=== PATIENT | male | born 1955 | race Caucasian/White ===

== ENCOUNTER 2019-06-18 07:02 | Day surgery (SDC) | payer MEDICARE, BC ==
[2019-06-15 09:43] VITALS: BMI 30.2
[2019-06-18] MEDS ORDERED: Ketorolac Tromethamine 30 MG/ML VIAL ONE (07:27)
[2019-06-18 07:43] LABS: #Basophils 0.1 thou/uL (0.0-0.2); #Eosinphils 0.2 thou/uL (0.0-0.7); #Lymphocytes 1.1 thou/uL (1.20-3.40); #Monocytes 0.3 thou/uL (0.11-0.59); #Neutrophils 4.3 thou/uL (1.40-6.50); %Basophils 1.2 % (0.0-1.0); %Eosinophils 3.6 % (0.0-10.0); %Lymphocytes 18.3 % (21.0-51.0); %Monocytes 4.9 % (0.0-10.0); %Neutrophils 72.1 % (42.0-75.0); Hemoglobin 11.5 g/dL (14.0-18.0); Mean Corpuscular HGB CONC 33.8 g/dL (32.0-36.0); Mean Corpuscular Hemoglobin 30.6 pg (27.0-31.0); Mean Corpuscular Volume 90.7 fL (78.0-98.0); Mean Platelet Volume 6.9 fL (7.4-10.4); Platelet Count 269 thou/uL (130-400); RBC Distribution Width 13.5 % (11.5-14.5); Red Blood Cell (RBC) Count 3.74 mill/uL (4.70-6.10)
[2019-06-18 07:54] LABS: Anion Gap 13 mmol/L (10-20); BUN (Urea Nitrogen) 15 mg/dL (8.4-25.7); Calc. Creatinine Clearance 140 mL/min (70-130); Calcium 9.1 mg/dL (7.8-10.44); Carbon Dioxide 26 mmol/L (23-31); Chloride 106 mmol/L (98-107); Estimated GFR-MDRD Greater than 90; Glucose 114 mg/dL (80-115); Potassium 4.1 mmol/L (3.5-5.1); Sodium 141 mmol/L (136-145)
[2019-06-18] MEDS ORDERED: Promethazine HCl 25 MG/ML VIAL IM PRN (08:09)
[2019-06-18] MEDS ORDERED: Promethazine HCl 25 MG/ML VIAL SLOW IVP PRN (08:09)
[2019-06-18] MEDS ORDERED: Ondansetron HCl/PF 4 MG/2 ML Vial IVP PRN (08:09)
[2019-06-18] MEDS ORDERED: Bupivacaine 0.25% HCL 30 ML VIAL ONE (08:51)
[2019-06-18] MEDS ORDERED: Lidocaine 1% (PF) 30 ML VIAL ONE (08:51)
[2019-06-18] MEDS ORDERED: Lidocaine 1% w/Epinephrine 1:100K 20 ML VIAL ONE (08:51)
[2019-06-18] MEDS ORDERED: Midazolam HCl 2 mg/2 ml Vial ONE (09:27)
[2019-06-18] MEDS ORDERED: Fentanyl 100 MCG/2 ML VIAL ONE (09:27)
--- NOTE | 2019-06-18 09:47 | RAD ---
PA AND LATERAL CHEST: HISTORY: Preop. FINDINGS: Heart size is borderline with postop sternotomy change. There are atherosclerotic changes of the aor ta. The lungs are clear of any infiltrative process. There is blunting to the left costophrenic ang le, the most recent exam I have available for comparison is a 07/13/2011 study. The blunting in the left costophrenic angle was not present at that time. IMPRESSION: 1. Borderline heart size. 2. Postop sternotomy change with some blunting to the left costophrenic angle which was felt to be c hronic in nature. No acute process identified. POS: [facility]
[2019-06-18] MEDS ORDERED: PROPOFOL 200 MG/20 ML VIAL ONE (10:13)
[2019-06-18] MEDS ORDERED: Ondansetron PF 4 MG/2 ML Vial ONE (10:13)
--- NOTE | 2019-06-18 11:14 | OP ---
DATE OF PROCEDURE: 06/18/2019 PREOPERATIVE DIAGNOSIS: Metastatic prostate cancer. POSTOPERATIVE DIAGNOSIS: Metastatic prostate cancer. PROCEDURE PERFORMED: Placement of right subclavian standard-sized power compatible MediPort. ANESTHESIA: General anesthesia with laryngeal mask airway. INDICATIONS: The patient is a 64-year-old white male with metastatic prostate cancer, who presents for MediPort placement for chemotherapy. DESCRIPTION OF PROCEDURE: Informed consent was obtained. The patient was taken to the operating room where total intravenous anesthesia was obtained with the patient in supine position. Right periclavicular area was prepped with ChloraPrep and draped in sterile fashion. Local anesthetic was infiltrated and a large-gauge needle was passed under the clavicle in the subclavian vein. Guidewire was passed through the needle and fluoroscopically confirmed to enter the superior vena cava. Additional local anesthetic was infiltrated and transverse incision was created based on needle insertion site. A subcutaneous pocket was dissected inferiorly. Introducer dilator was passed over the guidewire under fluoroscopic guidance. The guidewire and dilator were removed, and the catheter was passed through the introducer. The tip of the catheter was positioned at the atriocaval junction and the catheter was trimmed to the appropriate length and secured to the locking hub of the MediPort. The port was then placed in the subcutaneous pocket where it was secured to the pectoral fascia with 2 interrupted sutures of 3-0 Prolene. The incision was then closed in layers with 3-0 and 4-0 Monocryl. Additional local anesthetic was infiltrated. The port was cannulated with a Kitchen needle and it aspirated blood freely and was flushed with heparinized saline. Dermabond was placed externally on the skin incision. There were no complications. Blood loss was negligible. The patient tolerated the procedure well and was taken to recovery room in stable condition. FINDINGS: I used a low-profile power compatible MediPort. The patient's anatomy was within normal limits and there were no problems during the procedure. Due to his body habitus, I selected a standard size port. This was placed uneventfully into the right subclavian vein. There was some continuous retrograde oozing around the catheter insertion site within the soft tissues and I therefore placed a pursestring suture of 3-0 Monocryl around the catheter entry site into the soft tissue. I made sure that the port was easily aspirated and flushed in spite of the suture. There were no complications. The patient tolerated the procedure well. Job ID: [id number]
--- NOTE | 2019-06-18 12:35 | RAD ---
SINGLE VIEW CHEST: Date: 06/18/19 COMPARISON: 06/18/19 at 0824 hours. HISTORY: MediPort placement. FINDINGS: Single view of the chest shows cardiomediastinal silhouette which is upper limits of normal in size. The patient is status post sternotomy. There is a right-sided MediPort with its tip in the superior v joe cava. No pneumothorax is seen. IMPRESSION: Status post MediPort placement without evidence of complication. POS: [facility]
--- NOTE | 2019-06-19 14:08 | EKG ---
Test Reason : PREOP Blood Pressure : / mmHG Vent. Rate : 069 BPM Atrial Rate : 069 BPM P-R Int : 168 ms QRS Dur : 098 ms QT Int : 418 ms P-R-T Axes : 039 -30 005 degrees QTc Int : 447 ms Normal sinus rhythm Left axis deviation Abnormal ECG When compared with ECG of 16-MAR-2011 11:50, Incomplete right bundle branch block is no longer Present Confirmed by FRANCK ROGERS, SBozena ([id number]) on 06/19/2019 2:07:50 PM Referred By: DONELL Confirmed By:DR. Shivam JUÁREZ MD
== END 2019-06-18 12:00 | disposition home or self-care (01) ==
LOC: SDC 07:02
PROVIDERS: ATTEND Specialist
PROC: 02HV33Z Insertion of Infusion Device into Superior Vena Cava, Percutaneous Approach (ICD-10-PCS; principal; 2019-06-18)
DX: C61 Malignant neoplasm of prostate (principal); I10 Essential (primary) hypertension; M19.90 Unspecified osteoarthritis, unspecified site; Z79.84 Long term (current) use of oral hypoglycemic drugs; Z79.899 Other long term (current) drug therapy; Z88.1 Allergy status to other antibiotic agents; Z88.8 Allergy status to other drugs, medicaments and biological substances
CPT/HCPCS: 36415; 71045; 71046; 80048; 85025; 93005; 93010; C1788; J0131; J0690; J1642; J1885; J2001; J2250; J2405; J2704; J3010; S0020

== ENCOUNTER 2019-06-22 09:55 | Inpatient (IN) | payer MEDICARE, BC ==
--- NOTE | 2019-06-22 10:27 | RAD ---
Portable chest: HISTORY: Cough COMPARISON: 06/18/2019 FINDINGS:Mild cardiomegaly. Postop sternotomy change. Mild vascular engorgement. No focal infiltrate. No interval change. Mediport catheter appears adequately positioned. IMPRESSION: No acute finding
[2019-06-22] MEDS ORDERED: Metoprolol Tartrate 5 MG/5 ML VIAL ONE (10:50)
[2019-06-22 11:13] LABS: Hemoglobin 11.3 g/dL (14.0-18.0); Mean Corpuscular Hemoglobin 30.2 pg (27.0-31.0); Mean Corpuscular Volume 91.3 fL (78.0-98.0); Mean Platelet Volume 7.8 fL (7.4-10.4); Platelet Count 213 thou/uL (130-400); RBC Distribution Width 13.8 % (11.5-14.5); Red Blood Cell (RBC) Count 3.75 mill/uL (4.70-6.10)
[2019-06-22 11:22] LABS: ALT (SGPT) 13 U/L (8-55); AST (SGOT) 9 U/L (5-34); Albumin 3.4 g/dL (3.4-4.8); Alkaline Phosphatase 86 U/L (40-110); Anion Gap 11 mmol/L (10-20); BUN (Urea Nitrogen) 26 mg/dL (8.4-25.7); Calc. Creatinine Clearance 0 mL/min (70-130); Calcium 8.4 mg/dL (7.8-10.44); Carbon Dioxide 28 mmol/L (23-31); Chloride 106 mmol/L (98-107); Estimated GFR-MDRD 86; Globulin 2.3 g/dL (2.4-3.5); Glucose 90 mg/dL (80-115); Magnesium 1.9 mg/dL (1.6-2.6); Potassium 3.7 mmol/L (3.5-5.1); Protein, Total 5.7 g/dL (5.8-8.1); Sodium 141 mmol/L (136-145)
[2019-06-22 11:27] LABS: Band 2 % (5-11); Lymphocytes 13 % (21-51); MDiff Complete? YES; Monocytes 4 % (0-10); Neutrophil 81 % (42-75); Platelet Morphology Comment Appears Adequate; Vacuoles SLIGHT
[2019-06-22] MEDS ORDERED: Dextrose 5% in Water 1,000 ML IV PRN (12:58)
[2019-06-22] MEDS ORDERED: Senokot S 8.6-50 MG TAB PO PRN (12:58)
[2019-06-22] MEDS ORDERED: Acetaminophen 325 MG TAB PO PRN (12:58)
[2019-06-22] MEDS ORDERED: HumaLOG 300 UNITS/3 ML VIAL SC PRN ×2 (12:58)
[2019-06-22] MEDS ORDERED: Bisacodyl 10 MG SUPP PR PRN (12:58)
[2019-06-22] MEDS ORDERED: Guaifenesin DM 100-10/5 ML UDCUP PO PRN (12:58)
[2019-06-22] MEDS ORDERED: Calcium Carbonate 500 MG ChewTAB PO PRN (12:58)
[2019-06-22] MEDS ORDERED: Dextrose 50% Abboject 50 ML SYRINGE SLOW IVP PRN (12:58)
[2019-06-22 13:27] VITALS: BMI 29.8
--- NOTE | 2019-06-22 13:36 | HP ---
PRIMARY CARE PHYSICIAN: Dr. Strauss. PRIMARY ONCOLOGIST: Dr. Ellsworth. REASON FOR ADMISSION: Atrial fibrillation and RVR. HISTORY OF PRESENT ILLNESS: The patient gives history of having palpitations from Tuesday evening. He had called Dr. Rosenbaum's office. He was told if this persisted to call them again. He has had regular followups with Dr. Rosenbaum and has been told that he has another condition, but not atrial fibrillation. Currently, he has no complaints of chest pain, shortness of breath, or orthopnea. His palpitations persisted yesterday and continued on until this morning. He called Dr. Rosenbaum's on-call service and was asked to go to the emergency room. He has a significant history of prostate cancer and is on chemotherapy. Last chemo was on Tuesday. He has received Taxotere along with Neulasta. He has had a MediPort placed on Tuesday by Dr. Zuniga. He normally ambulates by himself. No complaints of fever, cough, or expectoration. No complaints of urinary frequency or urgency. No diarrhea or abdominal pain. No nausea. He has been steadily gaining weight due to Lupron shots. 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 CURRENT MEDICATIONS: 1. The patient is on Lupron shots once every 3 months. 2. He is on Taxotere every 3 weeks along with Neulasta. 3. He is on thyroid (pork) 60 mg twice daily. 4. Levoxyl 137 mcg p.o. daily. 5. Pioglitazone 50 mg p.o. daily. 6. Metformin 1000 mg twice daily. 7. Cardizem CD 120 mg p.o. daily. 8. CoQ10 200 mg p.o. daily. 9. Melatonin 10 mg p.o. at bedtime. ALLERGIES: ALLERGIC TO LEVAQUIN AND LISINOPRIL. PERSONAL HISTORY: Does not abuse alcohol or drugs. No history of smoking. The patient is a rancher. Lives with his . FAMILY HISTORY: Both parents are living. Both have history of atrial fibrillation. Mother has history of colon cancer and heart disease. Father has history of coronary artery disease as well. CODE STATUS: Full. Power of workers compensation attorney is his . REVIEW OF SYSTEMS: CONSTITUTIONAL: Negative for weight loss or gain, ability to conduct usual activities. SKIN: Negative for rash, itching. EYES: Negative for double vision, pain. ENT/MOUTH: Negative for nose bleeding, neck stiffness, pain, tenderness. CARDIOVASCULAR: Negative for palpitations, dyspnea on exertion, orthopnea. RESPIRATORY: Negative for shortness of breath, wheezing, cough, hemoptysis, fever or night sweats. GASTROINTESTINAL: Negative for poor appetite, abdominal pain, heartburn, nausea , vomiting, constipation, or diarrhea. GENITOURINARY: Negative for urgency, frequency, dysuria, nocturia. MUSCULOSKELETAL: Negative for pain, swelling. NEUROLOGIC/PSYCHIATRIC: Negative for anxiety, depression. ALLERGY/IMMUNOLOGIC: Negative for skin rash, bleeding tendency. PHYSICAL EXAMINATION: GENERAL: The patient is a 64-year-old male, who is currently not in any acute distress. VITAL SIGNS: Blood pressure 114/76, pulse 104 per minute, respiratory rate 22 per minute, temperature 97.6 degrees Fahrenheit, and saturating 96% on room air. NECK: Supple. No elevated JVD. HEENT: Eyes, extraocular muscles intact. Pupils reacting to light. Oral cavity, mucous membranes are dry. No exudates or congestion. CARDIOVASCULAR SYSTEM: S1 and S2 heard, regular rhythm. RESPIRATORY SYSTEM: Air entry 1+ bilateral. No rales or rhonchi. ABDOMEN: Soft. Bowel sounds heard. No tenderness, rigidity, or guarding. EXTREMITIES: There is 1+ peripheral edema. No calf tenderness. VASCULAR SYSTEM: Peripheral pulses 1+ bilateral. No ischemic ulcerations or gangrene. CENTRAL NERVOUS SYSTEM: No gross focal deficits noted. The patient is alert, awake, oriented well. PSYCHIATRIC: The patient's mood is euthymic. No hallucinations or delusions. IMAGING STUDIES: EKG done shows atrial fibrillation with RVR at 103 beats per minute. There is poor R-wave progression with incomplete RBBB. Chest x-ray done shows no acute findings. LABORATORY DATA: BUN 26 and creatinine 0.8. Electrolytes are stable. Serum glucose 90. Liver enzymes within normal limits. Troponin I 1st set is negative. Albumin is 3.4. White count of 21, H and H 11 and 34, platelet count 213, MCV is 91 with 81% neutrophils, 2% bands, 13% lymphocytes. CLINICAL IMPRESSION AND PLAN: The patient will be under observation on telemetry for recurrent palpitation with new-onset atrial fibrillation. He is on Cardizem CD 120 mg at home. We will add Lopressor 50 mg twice daily. He will be on low- dose aspirin. Echo with 2D Doppler for left ventricular function and to rule out thrombus. We will consult Dr. Caballero who is on-call for Dr. Rosenbaum. The patient is currently asymptomatic at present. If he were to get symptomatic, he will be placed on Cardizem drip or amiodarone drip based on his hemodynamic status. We will continue his Synthroid, [place] Thyroid, Actos, and metformin as before. We will gently hydrate him with normal saline at 60 mL/hour for a total of 2 L. Two more sets of troponin will be trended. He is otherwise hemodynamically stable, and we will closely monitor him on telemetry. Job ID: [id number] [facility]
[2019-06-22] MEDS ORDERED: Prevnar 13-Val Conj/PF 0.5 ML SYRINGE IM ONE (13:45)
[2019-06-22 14:27] LABS: Troponin I 0.039 ng/mL (< 0.028)
[2019-06-22] MEDS: Sodium Chloride 0.9% 1,000 ML IV SCH (16:02)
[2019-06-22] MEDS: metFORMIN 500 MG TAB PO SCH (16:02)
[2019-06-22 17:03] LABS: Troponin I 0.034 ng/mL (< 0.028)
[2019-06-22] MEDS: Metoprolol Tartrate 50 MG TAB PO SCH (18:30)
[2019-06-22] MEDS: Famotidine 20 MG TAB PO SCH (19:23)
[2019-06-22] MEDS ORDERED: Dronedarone HCl 400 MG TAB PO SCH (21:15)
[2019-06-22] MEDS ORDERED: Apixaban 5 MG TAB PO SCH (21:15)
[2019-06-23] MEDS: Levothyroxine Sodium 125 MCG TAB PO SCH (05:46)
[2019-06-23] MEDS: Sodium Chloride 0.9% 1,000 ML IV SCH ×2 (05:46→22:11)
[2019-06-23 05:54] LABS: Band 18 % (5-11); Eosinophils 2 % (0-10); Hemoglobin 10.4 g/dL (14.0-18.0); Lymphocytes 10 % (21-51); MDiff Complete? YES; Mean Corpuscular HGB CONC 33.6 g/dL (32.0-36.0); Mean Corpuscular Hemoglobin 30.4 pg (27.0-31.0); Mean Corpuscular Volume 90.3 fL (78.0-98.0); Metamyelocyte 7 % (0-0); Myelocyte 1 % (0-0); Neutrophil 60 % (42-75); Platelet Count 175 thou/uL (130-400); Platelet Morphology Comment Appears Adequate; RBC Distribution Width 13.6 % (11.5-14.5); RBC Morphology Normal; Reactive Lymphocytes 2 % (0-10); Red Blood Cell (RBC) Count 3.43 mill/uL (4.70-6.10); White Blood Cell (WBC) Count 15.6 thou/uL (4.8-10.8)
[2019-06-23 05:58] LABS: Anion Gap 10 mmol/L (10-20); BUN (Urea Nitrogen) 20 mg/dL (8.4-25.7); Calc. Creatinine Clearance 135 mL/min (70-130); Calcium 8.1 mg/dL (7.8-10.44); Carbon Dioxide 30 mmol/L (23-31); Chloride 105 mmol/L (98-107); Estimated GFR-MDRD Greater than 90; Glucose 91 mg/dL (80-115); Potassium 3.8 mmol/L (3.5-5.1); Sodium 141 mmol/L (136-145)
[2019-06-23 06:17] LABS: Free T4 (Free Thyroxine) 1.4 ng/dL (0.70-1.48)
[2019-06-23] MEDS: Dronedarone HCl 400 MG TAB PO SCH ×2 (08:07→17:33)
[2019-06-23] MEDS: Aspirin 81 mg Enteric Coated Tablet PO SCH (08:08)
[2019-06-23] MEDS: Apixaban 5 MG TAB PO SCH ×2 (08:08→20:17)
[2019-06-23] MEDS: Thyroid 60 MG TAB PO SCH (08:08)
[2019-06-23] MEDS: Famotidine 20 MG TAB PO SCH ×2 (08:08→20:17)
[2019-06-23] MEDS: Metoprolol Tartrate 50 MG TAB PO SCH ×2 (08:08→20:18)
[2019-06-23] MEDS ORDERED: Enoxaparin Sodium 40 MG/0.4 ML SYRINGE SC SCH (09:00)
[2019-06-23] MEDS: metFORMIN 500 MG TAB PO SCH ×2 (11:29→17:33)
[2019-06-23] MEDS: Pioglitazone HCl 15 MG TAB PO SCH (11:29)
[2019-06-23 11:51] LABS: Bacteria/HPF None Seen HPF (None Seen); Bilirubin Negative (Negative); Blood, Urine Negative (Negative); Clarity Clear (Clear); Glucose, Urine (Dipstick) Normal (Negative); Leukocyte Negative Leu/uL (Negative); Nitrite Negative (Negative); Protein, Urine (Dipstick) Negative (Neg-Trace); RBC/HPF 0-3 HPF (0-3); Squamous Epithelial None Seen HPF (0-3); Urobilinogen Normal mg/dL (Less than 2); WBC/HPF 0-3 HPF (0-3)
[2019-06-23 11:54] LABS: Urine Culture Reflex No No
--- NOTE | 2019-06-23 12:07 | PDOC.HOSPP ---
- Subjective Encounter Date: 06/23/19 Encounter Time: 10:05 Subjective: 64 y/o male with prostate ca on chemo, DM, hypothyroidism admitted with palpitation and found to have atrial fiv with RVR. Denied fever, nausea or vomting. Rate control is better but still suboptimal as rate goes up with minimal exertion. - Objective Vital Signs & Weight: Vital Signs (12 hours) Temp Pulse Resp BP BP Pulse Ox 06/23/19 11:52 97 F L 94 14 112/69 95 06/23/19 08:08 118 H 126/83 06/23/19 07:20 98.1 F 118 H 16 126/83 95 06/23/19 03:26 97.8 F 96 16 106/62 96 Weight Weight 232 lb 8 oz I&O: 06/22/19 06/23/19 06/24/19 06:59 06:59 06:59 Intake Total 1540 Output Total 1400 Balance 140 Result Diagrams: 06/23/19 05:02 06/23/19 05:02 Additional Labs: Accuchecks 06/23/19 06/22/19 06/22/19 10:45 21:28 16:47 POC Glucose 102 116 H 111 H Hospitalist ROS - Medication Medications: Active Medications Generic Name Dose Route Start Last Admin Trade Name Freq PRN Reason Stop Dose Admin Apixaban 5 mg 06/23/19 09:00 06/23/19 08:08 Eliquis PO 5 mg BID RADHA Administration Aspirin 81 mg 06/23/19 09:00 06/23/19 08:08 Ecotrin PO 81 mg DAILY RADHA Administration Diltiazem HCl 120 mg 06/23/19 09:00 06/23/19 08:08 Cardizem Cd PO 120 mg DAILY RADHA Administration Dronedarone 400 mg 06/23/19 08:00 06/23/19 08:07 Multaq PO 400 mg BID-WM RADHA Administration Famotidine 20 mg 06/22/19 21:00 06/23/19 08:08 Pepcid PO 20 mg BID RADHA Administration Sodium Chloride 1,000 mls @ 60 mls/hr 06/22/19 13:00 06/23/19 05:46 Normal Saline 0.9% IV 1,000 mls .[id number] RADHA Administration Levothyroxine Sodium 125 mcg 06/23/19 06:00 06/23/19 05:46 Synthroid PO 125 mcg 0600 RADHA Administration Metformin HCl 1,000 mg 06/22/19 17:00 06/23/19 11:29 Glucophage PO 1,000 mg BID-WM RADHA Administration Metoprolol Tartrate 50 mg 06/22/19 21:00 06/23/19 08:08 Lopressor PO 50 mg BID RADHA Administration Pioglitazone HCl 15 mg 06/23/19 09:00 06/23/19 11:29 Actos PO 15 mg DAILY RADHA Administration Sodium Chloride 10 ml 06/22/19 21:00 06/23/19 08:09 Flush - Normal Saline IVF Not Given Q12HR RADHA Thyroid 60 mg 06/23/19 09:00 06/23/19 08:08 [place] Thyroid PO 60 mg DAILY RADHA Administration - Exam General Appearance: awake alert ENT: normocephalic atraumatic, moist mucosa Neck: supple, symmetric, no JVD Heart: irregular Respiratory: no wheezes, no rales, no ronchi, normal chest expansion Gastrointestinal: soft, non-tender, non-distended, normal bowel sounds Extremities: no cyanosis, no edema Neurological: cranial nerve grossly intact, no focal deficits Psychiatric: normal affect, A&O x 3 Hosp A/P (1) Paroxysmal atrial fibrillation with RVR Code(s): I48.0 - PAROXYSMAL ATRIAL FIBRILLATION Status: Acute (2) Palpitations Code(s): R00.2 - PALPITATIONS Status: Acute (3) Prostate cancer Code(s): C61 - MALIGNANT NEOPLASM OF PROSTATE Status: Acute (4) Hypothyroidism Code(s): E03.9 - HYPOTHYROIDISM, UNSPECIFIED Status: Acute (5) Diabetes mellitus Code(s): E11.9 - TYPE 2 DIABETES MELLITUS WITHOUT COMPLICATIONS Status: Acute (6) Mild mitral regurgitation Code(s): I34.0 - NONRHEUMATIC MITRAL (VALVE) INSUFFICIENCY Status: Acute (7) Leucocytosis Code(s): D72.829 - ELEVATED WHITE BLOOD CELL COUNT, UNSPECIFIED Status: Acute (8) Elevated troponin Code(s): R79.89 - OTHER SPECIFIED ABNORMAL FINDINGS OF BLOOD CHEMISTRY Status : Acute (9) Demand ischemia of myocardium Code(s): I24.8 - OTHER FORMS OF ACUTE ISCHEMIC HEART DISEASE Status: Acute - Plan Continue metoprol, multaq and cardizem. Dose adjustment as per cardiology. Get UA with microscopy to rule out UTI Awaiting cardiology re evaluation. Continue telemetry
--- NOTE | 2019-06-23 17:52 | PDOC.CPN ---
- Subjective Date: 06/23/19 Time: 17:50 Interval history: He is doing well. Afib currently rate controlled. - Review of Systems General: denies: fever/chills, weight/appetite/sleep changes, night sweats, fatigue Respiratory: reports: shortness of breath. denies: cough, congestion, exercise intolerance Cardiovascular: reports: palpitation. denies: chest pain, edema, paroxysmal nocturnal dyspnea, orthopnea Gastrointestinal: denies: nausea, vomiting, diarrhea, constipation, abd pain, GI bleeding Musculoskeletal: denies: pain, tenderness, stiffness, swelling, arthritis/ arthralgias Neurological: denies: numbness, syncope, seizure, weakness - Objective Allergies/Adverse Reactions: Allergies Allergy/AdvReac Type Severity Reaction Status Date / Time levofloxacin [From Levaquin] Allergy Rash Verified 06/22/19 13:22 lisinopril Allergy Anaphylaxis Verified 06/22/19 13:22 Visit Medications: Current Medications Acetaminophen (Tylenol) 650 mg PO Q4H PRN PRN Reason: Headache/Fever/Mild Pain (1-3) Apixaban (Eliquis) 5 mg PO BID [facility] Last Admin: 06/23/19 08:08 Dose: 5 mg Aspirin (Ecotrin) 81 mg PO DAILY [facility] Last Admin: 06/23/19 08:08 Dose: 81 mg Bisacodyl (Dulcolax) 10 mg [place] DAILYPRN PRN PRN Reason: Constipation Calcium Carbonate (Tums) 1,000 mg PO Q4H PRN PRN Reason: Heartburn or Indigestion Dextrose/Water (Dextrose 50%) 25 gm SLOW IVP PRN PRN PRN Reason: Hypoglycemia Diltiazem HCl (Cardizem Cd) 120 mg PO DAILY [facility] Last Admin: 06/23/19 08:08 Dose: 120 mg Dronedarone (Multaq) 400 mg PO BID-[facility] Last Admin: 06/23/19 17:33 Dose: 400 mg Famotidine (Pepcid) 20 mg PO BID [facility] Last Admin: 06/23/19 08:08 Dose: 20 mg Glucagon (Glucagon) 1 mg IM PRN PRN PRN Reason: Hypoglycemia Guaifenesin/Dextromethorphan (Robitussin Dm) 15 ml PO Q4H PRN PRN Reason: Cough Dextrose/Water (D5w) 1,000 mls @ 0 mls/hr IV .Q0M PRN PRN Reason: Hypoglycemia Sodium Chloride (Normal Saline 0.9%) 1,000 mls @ 60 mls/hr IV .[id number] [facility] Last Admin: 06/23/19 05:46 Dose: 1,000 mls Insulin Human Lispro (Humalog) 0 units [place] .MODERATE SLIDING SC PRN PRN Reason: Moderate Correctional Scale Insulin Human Lispro (Humalog) 0 units [place] .BEDTIME SLIDING SC PRN PRN Reason: Bedtime Correctional Scale Levothyroxine Sodium (Synthroid) 125 mcg PO 0600 [facility] Last Admin: 06/23/19 05:46 Dose: 125 mcg Metformin HCl (Glucophage) 1,000 mg PO BID-[facility] Last Admin: 06/23/19 17:33 Dose: 1,000 mg Metoprolol Tartrate (Lopressor) 50 mg PO BID [facility] Last Admin: 06/23/19 08:08 Dose: 50 mg Pioglitazone HCl (Actos) 15 mg PO DAILY [facility] Last Admin: 06/23/19 11:29 Dose: 15 mg Senna/Docusate Sodium (Senokot S) 2 tab PO BIDPRN PRN PRN Reason: Constipation Sodium Chloride (Flush - Normal Saline) 10 ml IVF Q12HR [facility] Last Admin: 06/23/19 08:09 Dose: Not Given Sodium Chloride (Flush - Normal Saline) 10 ml IVF PRN PRN PRN Reason: Saline Flush Thyroid ([place] Thyroid) 60 mg PO DAILY [facility] Last Admin: 06/23/19 08:08 Dose: 60 mg Vital Signs & Weight: Vital Signs Temp Pulse Resp BP BP Pulse Ox 06/23/19 15:37 97 F L 96 20 121/62 97 06/23/19 11:52 97 F L 94 14 112/69 95 06/23/19 08:08 118 H 126/83 06/23/19 07:20 98.1 F 118 H 16 126/83 95 Weight 232 lb 8 oz - Physical Exam General: alert & oriented x3 HEENT: mucus membranes moist Neck: supple neck, midline trachea Cardiac: irregularly regular Lungs: clear to auscultation Neuro: grossly intact Abdomen: active bowel sounds Extremities: no edema Skin: clear Musculoskeletal: no pain - Labs Result Diagrams: 06/23/19 05:02 06/23/19 05:02 Troponin/CKMB Troponin I 0.034 ng/mL (< 0.028) H 06/22/19 16:34 - Telemetry Supraventricular conduction: atrial fibrillation - Assessment/Plan Assessment/Plan: 1. Atrial fibrillation, new onset 2. Hx of prostate CA with mets to lungs and spine 3. Type 2 DM 4. Hypothyroidism. PLAN: - Multaq and eliquis - [place] Cardioversion Tuesday if he remains in afib.
[2019-06-24] MEDS: Levothyroxine Sodium 125 MCG TAB PO SCH (05:07)
[2019-06-24] MEDS: metFORMIN 500 MG TAB PO SCH (08:58)
[2019-06-24] MEDS: Pioglitazone HCl 15 MG TAB PO SCH (08:58)
[2019-06-24] MEDS: Thyroid 60 MG TAB PO SCH (08:58)
[2019-06-24] MEDS: Aspirin 81 mg Enteric Coated Tablet PO SCH (08:58)
[2019-06-24] MEDS: Metoprolol Tartrate 50 MG TAB PO SCH (08:58)
[2019-06-24] MEDS: Famotidine 20 MG TAB PO SCH (08:58)
[2019-06-24] MEDS: Apixaban 5 MG TAB PO SCH (08:58)
[2019-06-24] MEDS: Dronedarone HCl 400 MG TAB PO SCH (08:58)
--- NOTE | 2019-06-24 12:55 | PDOC.CPN ---
- Subjective Date: 06/24/19 Time: 12:52 Interval history: He remains in afib but rate controlled. Very symptomatic, he gets SOB with any exertion while in afib, even going to the bathroom. - Review of Systems General: denies: fever/chills, weight/appetite/sleep changes, night sweats, fatigue Respiratory: reports: shortness of breath. denies: cough, congestion, exercise intolerance Cardiovascular: denies: chest pain, palpitation, edema, paroxysmal nocturnal dyspnea, orthopnea Gastrointestinal: denies: nausea, vomiting, diarrhea, constipation, abd pain, GI bleeding Musculoskeletal: denies: pain, tenderness, stiffness, swelling, arthritis/ arthralgias Neurological: denies: numbness, syncope, seizure, weakness - Objective Allergies/Adverse Reactions: Allergies Allergy/AdvReac Type Severity Reaction Status Date / Time levofloxacin [From Levaquin] Allergy Rash Verified 06/22/19 13:22 lisinopril Allergy Anaphylaxis Verified 06/22/19 13:22 Visit Medications: Current Medications Acetaminophen (Tylenol) 650 mg PO Q4H PRN PRN Reason: Headache/Fever/Mild Pain (1-3) Last Admin: 06/24/19 09:03 Dose: 650 mg Apixaban (Eliquis) 5 mg PO BID [facility] Last Admin: 06/24/19 08:58 Dose: 5 mg Aspirin (Ecotrin) 81 mg PO DAILY [facility] Last Admin: 06/24/19 08:58 Dose: 81 mg Bisacodyl (Dulcolax) 10 mg [place] DAILYPRN PRN PRN Reason: Constipation Calcium Carbonate (Tums) 1,000 mg PO Q4H PRN PRN Reason: Heartburn or Indigestion Dextrose/Water (Dextrose 50%) 25 gm SLOW IVP PRN PRN PRN Reason: Hypoglycemia Diltiazem HCl (Cardizem Cd) 120 mg PO DAILY [facility] Last Admin: 06/24/19 08:58 Dose: 120 mg Dronedarone (Multaq) 400 mg PO BID-[facility] Last Admin: 06/24/19 08:58 Dose: 400 mg Famotidine (Pepcid) 20 mg PO BID [facility] Last Admin: 06/24/19 08:58 Dose: 20 mg Glucagon (Glucagon) 1 mg IM PRN PRN PRN Reason: Hypoglycemia Guaifenesin/Dextromethorphan (Robitussin Dm) 15 ml PO Q4H PRN PRN Reason: Cough Dextrose/Water (D5w) 1,000 mls @ 0 mls/hr IV .Q0M PRN PRN Reason: Hypoglycemia Sodium Chloride (Normal Saline 0.9%) 1,000 mls @ 60 mls/hr IV .[id number] [facility] Last Admin: 06/23/19 22:11 Dose: Not Given Insulin Human Lispro (Humalog) 0 units [place] .MODERATE SLIDING SC PRN PRN Reason: Moderate Correctional Scale Insulin Human Lispro (Humalog) 0 units SC .BEDTIME SLIDING SC PRN PRN Reason: Bedtime Correctional Scale Levothyroxine Sodium (Synthroid) 125 mcg PO 0600 [facility] Last Admin: 06/24/19 05:07 Dose: 125 mcg Metformin HCl (Glucophage) 1,000 mg PO BID-[facility] Last Admin: 06/24/19 08:58 Dose: 1,000 mg Metoprolol Tartrate (Lopressor) 50 mg PO BID [facility] Last Admin: 06/24/19 08:58 Dose: 50 mg Pioglitazone HCl (Actos) 15 mg PO DAILY [facility] Last Admin: 06/24/19 08:58 Dose: 15 mg Senna/Docusate Sodium (Senokot S) 2 tab PO BIDPRN PRN PRN Reason: Constipation Sodium Chloride (Flush - Normal Saline) 10 ml IVF Q12HR [facility] Last Admin: 06/24/19 08:59 Dose: 10 ml Sodium Chloride (Flush - Normal Saline) 10 ml IVF PRN PRN PRN Reason: Saline Flush Thyroid ([place] Thyroid) 60 mg PO DAILY [facility] Last Admin: 06/24/19 08:58 Dose: 60 mg Vital Signs & Weight: Vital Signs Temp Pulse Resp BP BP Pulse Ox 06/24/19 11:06 98 20 113/78 96 06/24/19 08:58 111 H 124/89 06/24/19 07:29 97.6 F 111 H 18 124/89 96 06/24/19 03:20 97.9 F 91 16 129/72 97 Weight 232 lb 8 oz - Physical Exam General: alert & oriented x3 HEENT: mucus membranes moist, normocephaly Neck: supple neck, midline trachea Cardiac: no murmur, irregularly regular Lungs: clear to auscultation Neuro: grossly intact Abdomen: active bowel sounds, soft, non-tender Extremities: no edema Skin: clear Musculoskeletal: no pain - Labs Result Diagrams: 06/23/19 05:02 06/23/19 05:02 Troponin/CKMB Troponin I 0.034 ng/mL (< 0.028) H 06/22/19 16:34 - Telemetry Supraventricular conduction: atrial fibrillation - Assessment/Plan Assessment/Plan: 1. Atrial fibrillation, new onset 2. Hx of prostate CA with mets to lungs and spine 3. Type 2 DM 4. Hypothyroidism. PLAN: - Multaq and eliquis - [place] Cardioversion tomorrow as he is symptomatic with only rate control. - We spoke about risks and benefits odf [place] and Cardioversion, risks include but not limited to injury to teeth, injury to esophagus needing emergency surgery, failure of shock or need for more shocks, stroke. He understands and verbalizes understanding of this. He agrees to proceed.
--- NOTE | 2019-06-24 13:24 | PDOC.HOSPP ---
- Subjective Encounter Date: 06/24/19 Encounter Time: 09:23 Subjective: 64 y/o male with prostate ca on chemo, DM, hypothyroidism admitted with palpitation and found to have atrial fiv with RVR. Denied fever, nausea or vomting. Rate control is better but patient still get SOB with minimal exertion. - Objective Vital Signs & Weight: Vital Signs (12 hours) Temp Pulse Resp BP BP Pulse Ox 06/24/19 11:06 98 20 113/78 96 06/24/19 08:58 111 H 124/89 06/24/19 07:29 97.6 F 111 H 18 124/89 96 06/24/19 03:20 97.9 F 91 16 129/72 97 Weight Weight 232 lb 8 oz I&O: 06/23/19 06/24/19 06/25/19 06:59 06:59 06:59 Intake Total 1540 1980 Output Total 1400 2000 Balance 140 -20 Result Diagrams: 06/23/19 05:02 06/23/19 05:02 Additional Labs: Accuchecks 06/24/19 06/24/19 06/23/19 10:42 05:10 20:34 POC Glucose 129 H 89 119 H 06/23/19 16:38 POC Glucose 195 H Hospitalist ROS - Medication Medications: Active Medications Generic Name Dose Route Start Last Admin Trade Name Freq PRN Reason Stop Dose Admin Acetaminophen 650 mg 06/22/19 12:58 06/24/19 09:03 Tylenol PO 650 mg Q4H PRN Administration Headache/Fever/Mild Pain (1-3) Apixaban 5 mg 06/23/19 09:00 06/24/19 08:58 Eliquis PO 5 mg BID RADHA Administration Aspirin 81 mg 06/23/19 09:00 06/24/19 08:58 Ecotrin PO 81 mg DAILY RADHA Administration Diltiazem HCl 120 mg 06/23/19 09:00 06/24/19 08:58 Cardizem Cd PO 120 mg DAILY RADHA Administration Dronedarone 400 mg 06/23/19 08:00 06/24/19 08:58 Multaq PO 400 mg BID-WM RADHA Administration Famotidine 20 mg 06/22/19 21:00 06/24/19 08:58 Pepcid PO 20 mg BID RADHA Administration Sodium Chloride 1,000 mls @ 60 mls/hr 06/22/19 13:00 06/23/19 22:11 Normal Saline 0.9% IV Not Given .[id number] RADHA Levothyroxine Sodium 125 mcg 06/23/19 06:00 06/24/19 05:07 Synthroid PO 125 mcg 0600 RADHA Administration Metformin HCl 1,000 mg 06/22/19 17:00 06/24/19 08:58 Glucophage PO 1,000 mg BID-WM RADHA Administration Metoprolol Tartrate 50 mg 06/22/19 21:00 06/24/19 08:58 Lopressor PO 50 mg BID RADHA Administration Pioglitazone HCl 15 mg 06/23/19 09:00 06/24/19 08:58 Actos PO 15 mg DAILY RADHA Administration Sodium Chloride 10 ml 06/22/19 21:00 06/24/19 08:59 Flush - Normal Saline IVF 10 ml Q12HR RADHA Administration Thyroid 60 mg 06/23/19 09:00 06/24/19 08:58 [place] Thyroid PO 60 mg DAILY RADHA Administration - Exam General Appearance: awake alert Eye: anicteric sclera ENT: normocephalic atraumatic, moist mucosa Neck: supple, symmetric, no JVD Heart: irregular Respiratory: no wheezes, no rales, no ronchi, normal chest expansion Gastrointestinal: soft, non-tender, non-distended, normal bowel sounds Extremities: no cyanosis, no edema Neurological: cranial nerve grossly intact, no focal deficits Psychiatric: normal affect, A&O x 3 Hosp A/P (1) Paroxysmal atrial fibrillation with RVR Code(s): I48.0 - PAROXYSMAL ATRIAL FIBRILLATION Status: Acute (2) Palpitations Code(s): R00.2 - PALPITATIONS Status: Acute (3) Prostate cancer Code(s): C61 - MALIGNANT NEOPLASM OF PROSTATE Status: Acute (4) Hypothyroidism Code(s): E03.9 - HYPOTHYROIDISM, UNSPECIFIED Status: Acute (5) Diabetes mellitus Code(s): E11.9 - TYPE 2 DIABETES MELLITUS WITHOUT COMPLICATIONS Status: Acute (6) Mild mitral regurgitation Code(s): I34.0 - NONRHEUMATIC MITRAL (VALVE) INSUFFICIENCY Status: Acute (7) Leucocytosis Code(s): D72.829 - ELEVATED WHITE BLOOD CELL COUNT, UNSPECIFIED Status: Acute (8) Elevated troponin Code(s): R79.89 - OTHER SPECIFIED ABNORMAL FINDINGS OF BLOOD CHEMISTRY Status : Acute (9) Demand ischemia of myocardium Code(s): I24.8 - OTHER FORMS OF ACUTE ISCHEMIC HEART DISEASE Status: Acute (10) Exertional dyspnea Code(s): R06.09 - OTHER FORMS OF DYSPNEA Status: Acute - Plan For [place] cardioversion tomorrow if still in atrial fib given SOB with minimal exertion. Continue metoprol, multaq and cardizem as per cardiology Continue telemetry Continue other treatment. Get Repeat CBC and CMP in the am.
[2019-06-24 15:11] VITALS: BP 112/62; TEMP 98.4
--- NOTE | 2019-06-25 08:12 | CON ---
DATE OF CONSULTATION: HISTORY: Paulino Rivas is a 64-year-old white male, patient of Dr. Rosenbaum. He states that at one time in the past he had atrial fibrillation in 2014 after he underwent thymectomy. He has since had episodes of supraventricular tachycardia and has been on low-dose Cardizem to help suppress this. He had a chemotherapy port placed via the right subclavian vein on June 18. On June 21, he began to notice that his heart was racing and beating very irregularly. He denied any chest discomfort. He might have some shortness of breath. He would get up and walk. He states it seemed to go back to normal, but then over the last day or two has recurred and he ultimately came to the emergency room. He was found to be in atrial fibrillation with fast ventricular response , but overall his rate is not significantly elevated at this time. Again he denies any chest discomfort. Only minimal exertional dyspnea. PAST MEDICAL HISTORY: Prostate cancer recurrence with mets to the lung status post resection, mets to the spine, diabetes, hypothyroidism, prostatectomy, cataract surgery, TURP, vasectomy, thymoma resection in 2014. MEDICATIONS: 1. Diltiazem 120 daily. 2. Levothyroxine 137 mcg daily. 3. Melatonin 10 mg daily. 4. Metformin 1000 b.i.d. 5. Actos 15 once a day. 6. [place] Thyroid 60 mg b.i.d. ALLERGIES: HE IS ALLERGIC TO LEVAQUIN AND LISINOPRIL. SOCIAL HISTORY: He does not smoke or drink. REVIEW OF SYSTEMS: 10-point review of systems is otherwise unremarkable. PHYSICAL EXAMINATION: VITAL SIGNS: 114/69, pulse 103. HEENT: PERRL. NECK: Supple. CHEST: Clear. CARDIAC: S1 and S2 normal without any S3, S4, or murmurs. ABDOMEN: Normal bowel sounds without tenderness or organomegaly. EXTREMITIES: Revealed no clubbing, cyanosis, or edema. NEUROLOGIC: Grossly intact. SKIN: Warm and dry. LABORATORY DATA: Chest x-ray was reviewed and the tip of the chemotherapy port does not appear to be in the right atrium. Hemoglobin 11.3, hematocrit 34.2, white count 21,000, platelets 213,000. Sodium 140, potassium 4.5, chloride 107, carbon dioxide 24, BUN 13, creatinine 0.77. IMPRESSION: 1. New-onset atrial fibrillation. 2. 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 3. History of supraventricular tachycardia. 4. Metastatic prostate cancer. 5. Diabetes mellitus. 6. Hypothyroidism. PLAN: The patient will be started on Eliquis 5 mg b.i.d. for anticoagulation and also Multaq 400 mg b.i.d. Echocardiogram has been ordered. Consideration may be given to cardioversion in 2 to 3 days if he does not convert. Also, TSH, free T3, and free T4 will be obtained since it appears he is on somewhat of a high dose of thyroid replacement. Job ID: [id number] [facility]
--- NOTE | 2019-06-25 15:17 | DIS ---
DATE OF ADMISSION: 06/24/2019 DATE OF DISCHARGE: 06/24/2019 PRIMARY CARE PHYSICIAN: Max Strauss MD DISCHARGE DIAGNOSES: 1. Paroxysmal atrial fibrillation with rapid ventricular response. 2. Demand ischemia of the myocardium. 3. Elevated troponin. 4. Palpitations. 5. Diabetes mellitus. 6. Mild mitral regurgitation. 7. Leukocytosis. 8. Prostate cancer with metastasis. 9. Hypothyroidism. 10. Exertional dyspnea. 11. Acute diastolic heart failure due to atrial fibrillation, present on admission. CONSULTS: Cardiology. HOSPITAL COURSE: A 64-year-old male with known history of prostate cancer with metastasis on chemotherapy, type 2 diabetes, hypothyroidism, and others as well as prior history of paroxysmal atrial fibrillation, admitted with palpitation. The patient was found to have atrial fibrillation with rapid ventricular response, hence was started on Cardizem and metoprolol. Cardiology consult was obtained and the patient subsequently was started on Multaq for chemical cardioversion as the patient was noted to have shortness of breath with minimal exertion while in atrial fibrillation. The patient also was started on anticoagulation with Eliquis. Due to persistent atrial fibrillation as well as dyspnea with minimal exertion, consistent with acute diastolic dysfunction, [place] cardioversion was planned for June 25 to allow for at least 48 hours of anticoagulation. The patient, however, spontaneously converted to sinus rhythm with improvement of symptoms. The patient was observed and he remained in sinus rhythm with resolution of symptoms and was subsequently discharged home. PHYSICAL EXAMINATION: VITAL SIGNS: Temperature 98.4, pulse 74, respiratory rate 16, SpO2 of 97 on room air, and blood pressure is 112/62. GENERAL: Male patient in no obvious distress. Afebrile. Anicteric. Acyanotic. HEENT: Normocephalic, atraumatic. Oral mucosa is moist. NECK: Supple and nontender with good range of motion. No JVD appreciated. CARDIOVASCULAR: Regular rhythm and rate with soft systolic murmur. RESPIRATORY: Fair air entry bilaterally with no crackle or rhonchi or use of accessory muscles. GI: Full, soft, nontender, nondistended with normal bowel sounds. EXTREMITIES: Grossly normal looking atraumatic with no edema or erythema. ACTIVE DIRECTORY SPECIALIST: Conscious, alert, oriented x3 with appropriate mental status. Cranial nerves 2 through 12 are grossly intact. The patient is ambulant. DISCHARGE CONDITION: Improved. DISCHARGE DISPOSITION: Home. DISCHARGE FOLLOWUP: The patient is to follow up with photographer motion picture on June 25 for further treatment. The patient also is to follow up with regular oncologist for continuation of cancer treatment. DISCHARGE MEDICATIONS: 1. Diltiazem 120 mg ER p.o. daily. 2. Levothyroxine 137 mcg p.o. daily. 3. Melatonin 10 mg p.o. daily at bedtime. 4. Metformin 1000 mg p.o. b.i.d. 5. Actos 15 mg p.o. daily. 6. Thyroid ([place]) 60 mg p.o. b.i.d. 7. CoQ10 200 mg p.o. daily. 8. Eliquis 5 mg p.o. b.i.d. 9. Aspirin 81 mg p.o. daily. 10. Multaq 400 mg p.o. b.i.d. 11. Metoprolol tartrate 50 mg p.o. b.i.d. This discharge took more than 35 minutes. Job ID: [id number]
--- NOTE | 2019-06-26 06:49 | PQF ---
[employer] Erp Architect Crystal Reports Winform LUIS De La Torre ANDREAS MCNEAL [id number] [id number] CLINICAL DOCUMENTATION CLARIFICATION FORM: POST DISCHARGE Addendum to original discharge summary date: ____ Late entry note date: __ DATE: 06/26/2019 ATTN: ANDREAS MCNEAL Please exercise your independent, professional judgment in responding to the clarification form. Clinical indicators are provided on the bottom of this form for your review Please check appropriate box(s): [ ] AFIB is a complication of current/recent surgery [ ] AFIB is a not complication of current/recent surgery [ x ] Other diagnosis Paroxysmal atrial fibrillation with RVR [ ] Unable to determine In addition, please specify: Present on Admission (POA): [ x ] Yes [ ] No [ ] Unable to determine CLINICAL INDICATORS - SIGNS / SYMPTOMS / LAB He had chemotherapy port placed via RT subclavian vein on June 18 - Documented in Consultation report on 06/24 by Federico Álvarez on June 21 he began to notice that his heart was racing and beating very irregularly - Documented in Consultation report on 06/24 by Federico Álvarez Demand ischemia of Myocardium - Documented in hospital PNs on 06/24 by ANDREAS MCNEAL RISK FACTORS Metastatic Prostate cancer - Documented in Consultation report on 06/24 by Federico Álvarez DM TREATMENT: patient will started on Eliquis 5 mg for anticoagulation and also Multaq 400 mg - Documented in Consultation report on 06/24 by Federico Álvarez Echocardiogram He is on Cardizem CD 120 mg at home - Documented in H&p on 06/25 by Sherice Oneil MD (This form is maintained as a part of the permanent medical record) 2014 [facility], [employer]. All Rights Reserved [email or web address] [not provided] MTDD
--- NOTE | 2019-06-26 21:40 | PQF ---
SAP Topography Technician Crystal Reports Winform LUIS De La Torre ANDREAS MCNEAL [id number] [facility]232 [id number] CLINICAL DOCUMENTATION CLARIFICATION FORM: POST DISCHARGE Addendum to original discharge summary date: ____ Late entry note date: __ DATE: 06/26/2019 ATTN: ANDREAS MCNEAL Please exercise your independent, professional judgment in responding to the clarification form. Clinical indicators are provided on the bottom of this form for your review Please check appropriate box(s): AMI TYPE: [ ] Acute Coronary Syndrome (ACS) without Acute HI meaning Unstable Angina [ ] NSTEMI (HI type I) [ ] NSTEMI due to Demand Ischemia (AMI Type II) [ ] Demand Ischemia without HI [ ] STEMI (please also specify site and arterysee below) If STEMI, SITE:[ ] Anterior [ ] Apical [ ] Lateral [ ] Inferior [ ] Posterior [ ] Q Wave [ ] Septal [ ] Unable to Determine SPECIFIC ARTERY (Based on site) [ ] Left Main Coronary[ ] Diagonal [ ] Left Anterior Descending[ ] Oblique Marginal [ ] Right Coronary Artery[ ] Unable to Determine [ ] Left Circumflex ONSET OF INFARCTION: [ ] Onset Less than 4 weeks of admission [ ] Onset Greater than 4 weeks of admission [ ] Unable to determine DUE TO (if applicable): [ ] Stent occlusion [ ] In-Stent stenosis [ ] Occlusion of coronary bypass graft [ ] Complication of PCI [ ] Underlying CAD [ ] Other [ x ] Other diagnosis Demand ischemia of the myocardium [ ] Unable to determine In addition, please specify: Present on Admission (POA): [ x ] Yes [ ] No [ ] Unable to determine CLINICAL INDICATORS - SIGNS / SYMPTOMS / LABS Troponin 0.039 on 06/22 - Documented in Laboratory result Demand ischemia of myocardium - Documented in Hospital PNs on 06/23 by ANDREAS MCNEAL Mild mitral regurgitation - Documented in Hospital PNs on 06/23 by ANDREAS MCNEAL RISK FACTORS new onset of Afib - Documented in H&p on 06/25 by Sherice Oneil MD Metastatic Prostate cancer - Documented in Consultation report on 06/24 by Federico Álvarez DM TREATMENT: Aspirin 81 mg daily - Documented in medication patient will started on Eliquis 5 mg for anticoagulation and also Multaq 400 mg - Documented in Consultation report on 06/24 by Federico Álvarez Echocardiogram He is on Cardizem CD 120 mg at home - Documented in H&p on 06/25 by Sherice Oneil MD (This form is maintained as a part of the permanent medical record) 2014 [employer]. All Rights Reserved [email or web address] [not provided] MTDD
== END 2019-06-24 16:12 | disposition home or self-care (01) | DRG 309 ==
LOC: ERS 09:55 → 2SW 12:57 → OBSVTOIN 06-24 13:20
PROVIDERS: ADMIT Internal Medicine; ATTEND Internal Medicine
DX: I48.0 Paroxysmal atrial fibrillation (principal); I24.8 Other forms of acute ischemic heart disease; C78.7 Secondary malignant neoplasm of liver and intrahepatic bile duct; C79.51 Secondary malignant neoplasm of bone; E11.9 Type 2 diabetes mellitus without complications; E03.9 Hypothyroidism, unspecified; C61 Malignant neoplasm of prostate; I34.0 Nonrheumatic mitral (valve) insufficiency; D72.829 Elevated white blood cell count, unspecified; Z98.49 Cataract extraction status, unspecified eye; Z79.84 Long term (current) use of oral hypoglycemic drugs; Z88.8 Allergy status to other drugs, medicaments and biological substances
CPT/HCPCS: 36415; 36416; 71045; 80048; 80053; 81001; 83735; 84439; 84443; 84481; 84484; 85025; 93005; 93010; 93306; 96374

== ENCOUNTER 2020-04-20 17:58 | Emergency (ER) | payer MEDICARE, BC ==
[2020-04-20 20:18] LABS: #Eosinphils 0.1 thou/uL (0.0-0.7); #Lymphocytes 1.2 thou/uL (1.20-3.40); #Monocytes 0.7 thou/uL (0.11-0.59); #Neutrophils 4.8 thou/uL (1.40-6.50); %Basophils 0.3 % (0.0-1.0); %Eosinophils 1.3 % (0.0-10.0); %Lymphocytes 18.2 % (21.0-51.0); %Monocytes 9.6 % (0.0-10.0); %Neutrophils 70.6 % (42.0-75.0); Hemoglobin 10.1 g/dL (14.0-18.0); Mean Corpuscular HGB CONC 33.5 g/dL (32.0-36.0); Mean Corpuscular Hemoglobin 30.8 pg (27.0-31.0); Platelet Count 229 thou/uL (130-400); Red Blood Cell (RBC) Count 3.27 mill/uL (4.70-6.10); White Blood Cell (WBC) Count 6.8 thou/uL (4.8-10.8)
[2020-04-20 20:47] LABS: ALT (SGPT) 19 U/L (8-55); AST (SGOT) 39 U/L (5-34); Albumin 3.7 g/dL (3.4-4.8); Alkaline Phosphatase 271 U/L (40-110); Anion Gap 13 mmol/L (10-20); BUN (Urea Nitrogen) 35 mg/dL (8.4-25.7); Bilirubin, Total 0.3 mg/dL (0.2-1.2); CK (CPK) 460 U/L (30-200); Calc. Creatinine Clearance 0 mL/min (70-130); Calcium 8.4 mg/dL (7.8-10.44); Carbon Dioxide 23 mmol/L (23-31); Chloride 106 mmol/L (98-107); Estimated GFR-MDRD Greater than 90; Globulin 2.9 g/dL (2.4-3.5); Glucose 135 mg/dL (80-115); Lipase 34 U/L (8-78); Potassium 4.3 mmol/L (3.5-5.1); Protein, Total 6.6 g/dL (5.8-8.1); Sodium 138 mmol/L (136-145)
--- NOTE | 2020-04-20 21:22 | MRI ---
MRI LUMBAR SPINE NONCONTRAST: DATE: 04/20/2020 9:09 PM HISTORY: 65-year-old male with urinary incontinence and bilateral lower extremity weakness and numbness. COMPARISON: None FINDINGS: There are 5 lumbar-type vertebrae. There is very abnormal T1 hypointense signal and heterogeneous mix ed hypointense and hyperintense STIR and T2 signal, involving all levels of the lumbar spine, and all visualized portions of sacrum and bilateral iliac bones. Conus medullaris terminates at upper L1- 2. Vertebral body heights are maintained. Severe disc space narrowing at L5-S1. T12: Expansile osseous mass or soft tissue component of tumor protrudes into the anterior aspect of t he spinal canal centrally and bilaterally paracentrally, causing mild to moderate central spinal canal stenosis, without rosa cord compression. T12-L1:No high-grade central stenosis. No high-grade neural foraminal stenosis. L1:Expansile osseous mass or soft tissue component of tumor protrudes into the anterior aspect of the spinal canal centrally and bilaterally paracentrally, causing mild to moderate central spinal canal stenosis, without rosa cord compression. L1-2:Soft tissue right anterior lateral component of the mass described above protrudes into the righ t neural foramen, causing high-grade right neural foraminal stenosis. Mild to moderate left neural foraminal stenosis. No high-grade central spinal canal stenosis. L2: Expansile bony tumor component of right pedicle and/or soft tissue component, effaces right later al aspect of spinal canal, causing moderate central spinal canal stenosis. L2-3:Mild central spinal canal stenosis. Posterior epidural fat pad. Moderate thecal sac stenosis. Mo derate left neural foraminal stenosis. Tumor material extends into right neural foramen, contacting exiting right L2 nerve root. L3: Central and bilateral paracentral expansile component of bony tumor protrudes into the spinal can al, causing severe central spinal canal stenosis, with crowding of cauda equina and effacement of CSF signal. L3-4:Mild to moderate bilateral facet DJD. Moderate right neural foraminal stenosis. Tumor infiltrati on into left neural foramen. Mild to moderate central spinal canal stenosis. Posterior epidural fat pad. Moderate to severe thecal sac stenosis with crowding of cauda equina. L4-5:Moderate to severe bilateral facet DJD. Significant metastatic involvement of left facet complex . Moderate ligamentum flavum thickening. Moderate central spinal canal stenosis. Severe thecal sac stenosis with crowding of cauda equina. Mild to moderate right neural foraminal stenosis. Moderate to severe left neural foraminal stenosis. L5: Anterior epidural component of tumor encroaches upon spinal canal. Moderate to severe central spi nal canal stenosis. L5-S1:Severe bilateral facet DJD. Severe bilateral neural foraminal stenosis. Moderate central spinal canal stenosis. Severe thecal sac stenosis. IMPRESSION: 1) severe osseous metastatic disease throughout all levels of lumbar spine, sacrum, and bilateral mckay um. 2) metastatic tumor components encroach upon neural foramina and spinal canal, causing multilevel hig h-grade central spinal canal stenosis and multilevel high-grade neural foraminal stenosis. 3.) Lumbar spondylosis, including lower level facet osteoarthrosis, plus high-grade L5-S1 degenerativ e disc disease.
[2020-04-20 22:16] LABS: Bacteria/HPF 4+ HPF (None Seen); Bilirubin Negative (Negative); Blood, Urine 3+ (Negative); Clarity Turbid (Clear); Glucose, Urine (Dipstick) Normal (Negative); Ketone, Urine Negative (Negative); Leukocyte 25 Leu/uL (Negative); Nitrite Negative (Negative); Protein, Urine (Dipstick) 30 mg/dL (Neg-Trace); RBC/HPF Greater than 50 HPF (0-3); Specific Gravity, Urine 1.026 (1.002-1.036); Squamous Epithelial 0-3 HPF (0-3); Urobilinogen Normal mg/dL (Less than 2); pH, Urine 5.5 (5.0-9.0)
[2020-04-20] MEDS ORDERED: Dexamethasone 10 MG/ML VIAL ONE (22:35)
[2020-04-20] MEDS ORDERED: cefTRIAXone\\ROCEPHIN 1 GM VIAL ONE (22:35)
[2020-04-20 22:38] LABS: Prothrombin Time 13.3 sec (12.0-14.7)
[2020-04-20 22:39] LABS: PTT 32.5 sec (22.9-36.1)
[2020-04-21 12:00] LABS: SARS-CoV-2 MS2 Positive; SARS-CoV-2 N Gene Negative; SARS-CoV-2 S Gene Negative; SARS-CoV-2 by NAA Not Detected (NotDetected); SARS-CoV-2 orf1ab Negative
== END 2020-04-21 01:28 | disposition short-term general hospital (02) ==
LOC: ERS 17:58
DX: G83.4 Cauda equina syndrome (principal); C61 Malignant neoplasm of prostate; C79.89 Secondary malignant neoplasm of other specified sites; C79.51 Secondary malignant neoplasm of bone; N39.0 Urinary tract infection, site not specified; Z20.828 Contact with and (suspected) exposure to other viral communicable diseases; E03.9 Hypothyroidism, unspecified; Z79.82 Long term (current) use of aspirin; Z79.84 Long term (current) use of oral hypoglycemic drugs; Z79.899 Other long term (current) drug therapy
CPT/HCPCS: 72148; 80053; 82550; 83690; 85025; 85610; 85730; 87086; 96361; 96374; 96375; 99285; U0003; 36415; 81003; 81015; 87635; J0696; J1100